=== PATIENT | male | born 1980 | race Caucasian/White ===

== ENCOUNTER → 2017-04-20 | Outpatient (CLI) | payer MEDICARE, OTHER ==
--- NOTE | ~2017-04-20 | CR173 ---
[facility] A Service of [facility] & [facility] RADIOLOGY TEXT RESULTS PATIENT: NATE TORRES LOCATION: [facility] : 78 UNIT #: [id number] AGE: [address]: Pepper Josue MD SEX: M ORDER DR: [id number] [facility] [address] [place], [place] [address] [id number] O MR#: [id number] #: [id number] NAME: NATE TORRES : 1980 SEX: M STUDY DATE/TIME: 04/20/2017 17:09 UNIT: [facility] ROOM: STUDY DESCRIPTION: CR Knee 3 Views Rt Attending Physician: Pepper Josue M.D. Referring Physician: Pepper Josue M.D. Ordering Physician: Pepper Josue M.D. Primary Care Physician: Pepper Josue M.D. MEDICAL IMAGING REPORT This report is preliminary unless electronic signature is present EXAM Right knee 3 views, 04/20/2017 HISTORY Right knee pain beginning 04/19/2017, worsening. No known injury. FINDINGS AP and lateral projection of the knee shows smooth articular anatomy without indication of fracture or dislocation at the major weight-bearing surface of the knee. There is no indication of radiopaque foreign body about the knee surface or joint effusion. IMPRESSION Normal right knee. Dictated by... Baldomero Rosado M.D. THIS IS AN ELECTRONICALLY VERIFIED REPORT Baldomero Rosado M.D. at 04/22/2017 6:24 AM SHARRI/sheng TD: 04/21/2017 11:49 JOB #: [id number] MEDICAL IMAGING REPORT Page 1 of 1 COPY
== END | disposition home or self-care (01) ==
LOC: CRAD 16:39
DX: M25.561 Pain in right knee (principal)
CPT/HCPCS: 73562